=== PATIENT | female | born 1945 | race Caucasian/White ===

== ENCOUNTER 2025-06-18 11:45 | Emergency (ER) | payer MEDICARE, BC, SELFPAY ==
[2025-06-18 11:47] VITALS: BP 195/88
--- NOTE | 2025-06-18 12:54 | ED.GENMED ---
History of Present Illness
General
Chief Complaint: Skin Problem
Source: patient
Exam Limitations: none
Time Seen by Provider: 06/18/25 12:37
History of Present Illness
History of Present Illness:
See MDM
Past History
Past History
ED Past Medical History: Other (TTP)
ED Past Surgical History: None
Social History
Tobacco: Non-smoker
Alcohol: None
Phy Exam
Physical Exam
Physical Exam:
See MDM
Course
Orders/Labs/Results
Orders:
Orders
06/18/25 12:55
Gabapentin [Neurontin] 100 mg PO NOW STA
06/18/25 13:29
FRANCO, IgG Reflex to HEp-2 [S] Urgent
Antiphospholipid Antibody [Phospholipid Antibody Panel] Urgent
CRP [C-Reactive Protein] Urgent
Complete Blood Count/With Diff Urgent
Comprehensive Metabolic Panel Urgent
ESR [Erythrocyte Sed Rate] Urgent
LDH Urgent
RPR [Syphilis/T. pallidum Ab Reflex] Urgent
Abnormal Lab Results
06/18/25
13:29
Monocytes % 9.8 H %
(1.7-9.3)
ESR 75 H mm/hour
(0-20)
BUN 18 H mg/dl
(7-17)
Glucose 104 H mg/dl
(70-99)
06/18/25 13:29
06/18/25 13:29
Vital Signs
Initial and Last Documented VS:
Initial Vital Signs
Temp Pulse Resp BP Pulse Ox
98.5 F 85 18 195/88 97
06/18/25 11:47 06/18/25 11:47 06/18/25 11:47 06/18/25 11:47 06/18/25 11:47
Last Documented Vital Signs
Temp Pulse Resp BP Pulse Ox
98.5 F 85 18 195/88 97
06/18/25 11:47 06/18/25 11:47 06/18/25 11:47 06/18/25 11:47 06/18/25 12:55
MDM/Problems Addressed
Differential Diagnosis Includes:
Note:
CHIEF COMPLAINT(S)
Pain in one hand.
HISTORY OF PRESENT ILLNESS
The patient is an 80-year-old female presenting with pain in her left hand. She reports that the pain started two weeks ago. The patient described the sensation as very painful, noting that even warm touch exacerbates the pain, stating, 'I cant even
take a warm shower.' The pain was severe enough for her primary care physician (PCP) to suggest a dermatological evaluation. Following her dermatologists consultation, she was advised to seek emergency attention due to concerns about possible blood
clots. However, the business support manager did not provide clear information regarding the visits urgency, per pt. The patient denies taking any anticoagulants and mentions no recent trauma or new contact with substances using her hands. She reports no other
staton or symptoms on her body. The patient finds that cool temperatures provide some relief. She denies a history of autoimmune disorders, recent infections such as COVID-19, or unusual dietary intake like seafood. Her review of systems did not
reveal any respiratory issues or chest pain. The patient expresses skepticism about the presence of an emergency, adhering to her providers recommendations as a precaution.
PHYSICAL EXAM
General: Alert, no acute distress.
Skin: Warm, dry.
Head: Normocephalic, atraumatic
Neck: Appears supple, trachea midline.
Eyes, Ears, Nose, Mouth, and Throat: Moist mucous membranes
Cardiovascular: No signs of cyanosis
Respiratory: Respirations are non-labored.
Abdomen: Non-distended
Musculoskeletal: No deformities. Left radial pulse +2
Neurological: Patient tenderness to palpation of left fingertips but cap refill less than 2 seconds. Sensation grossly intact
Psychiatric: Cooperative, appropriate mood and affect.
PLAN
The patient may be started on a low dose of gabapentin (100 mg twice daily) for nerve pain, pending further consultation and decisions with her primary care physician. Nonsteroidal anti-inflammatory drugs (NSAIDs) like ibuprofen will not be started
immediately to avoid any potential impact on blood work that may be required later. The patient was advised on the treatment plan and reassured that the condition does not appear to be limb-threatening.
DIFFERENTIAL DIAGNOSIS
The Differential Diagnosis includes, in no particular order and is not limited to:
- Raynauds phenomenon
- Small vessel vasculitis
- Peripheral neuropathy
- Carpal tunnel syndrome
- Complex regional pain syndrome
- Blood clot in small vessels
- Allergic or irritant contact dermatitis
- Trauma-related pain
- Autoimmune disorder
- Neuropathic pain
MEDICATION RECONCILIATION
Gabapentin 100 mg prescribed to be taken twice daily as an initial regimen, with potential follow-up dosing adjustments based on response and consultation with her primary care physician.
MEDICAL DECISION MAKING
- Complexity of Data Reviewed: Chronic conditions affecting care include none explicitly mentioned; differential diagnosis includes small vessel vasculitis, Raynauds phenomenon, peripheral neuropathy, and others as listed above.
- Data:
Category 1
No external records were reviewed or test results immediately available.
Category 2
No direct interpretation of tests or imaging performed.
Category 3
No consultations with other physicians or specialists mentioned beyond dermatological input and planned primary care follow-up.
-Risk:
Consideration of Admission/Observation: Escalation of care including admission/observation was considered given the complexity and risk of the patients presenting complaint, exam findings, and/or their underlying comorbidities. However, ultimately,
I feel the patient is safe for outpatient management with close follow-up. Reasoning: Work-up reassuring, does not reveal any acute life/organ-threatening processes, patients symptoms well controlled upon reevaluation, reexamination is reassuring,
vitals are stable, patient agreeable with discharge, reliable for follow-up.
DIAGNOSIS
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
Peripheral neuropathy - ICD-10 code G62.9
Carpal tunnel syndrome - ICD-10 code G56.00
SUMMARY OF ENCOUNTER
The patient is an 80-year-old female who presented to the emergency department with left hand pain that began two weeks ago. The pain is described as severe and worsens with warm touch. Her business support manager recommended this visit due to concerns about
blood clots, though no immediate life-threatening conditions were identified. A trial of gabapentin for nerve pain was initiated after considering her negative history for conditions such as autoimmune disorders or recent infections. Mild elevation
in ESR was noted, suggesting inflammation, but the rest of the blood work remains pending.
DISPOSITION
Discharge.
ASSESSMENT
The patient presents with symptoms consistent with nerve pain, potentially linked to peripheral neuropathy or small vessel vasculitis. Further follow-up with her primary care physician is needed to evaluate blood work and refine the diagnosis.
PLAN
The patient was started on a low dose of gabapentin, 100 mg twice daily, as an initial regimen for nerve pain. Follow-up with the primary care physician will involve a reassessment of her condition and review of complete blood work results.
PATIENT EDUCATION AND COUNSELING
The patient was advised about the potential causes of her hand pain and the purpose of gabapentin in managing nerve-related pain. Return precautions were clearly discussed, emphasizing the importance of follow-up with her primary care physician for
ongoing management.
MEDICATION RECONCILIATION
Gabapentin 100 mg prescribed to be taken twice daily.
MEDICAL DECISION MAKING
- Number and Complexity of Problems Addressed:
Chronic conditions affecting care include none explicitly mentioned.
- Data:
Category 1: No specific labs were ordered today; however, results discussed indicated mild elevation in ESR with further results pending.
Category 3: Discussion involved the dermatologists input who suggested emergency evaluation due to suspected blood clot risks.
- Risk:
Prescription medication was prescribed, and follow-up with the primary care physician was advised to ensure comprehensive care. Consideration of Admission/Observation: Escalation of care including admission/observation was considered given the
complexity and risk of the patients presenting complaint. However, ultimately, I feel the patient is safe for outpatient management with close follow-up. Reasoning: Symptoms well controlled and stable for outpatient follow-up.
DIAGNOSIS
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
- Peripheral neuropathy - ICD-10 code G62.9
- Carpal tunnel syndrome - ICD-10 code G56.00
*Pulse Oximetry
SaO2: 97
Oxygen Mode of Delivery: Room air
Patient hypoxic: no
*Critical Care Note
Total Time (30-74mins, 75-104mins- exclusive of procedures): Not Applicable
ED Attending Note
-
Portions of this chart may have been created with voice recognition software.� Occasional wrong word or��sound alike� substitutions may have occurred due to the inherent limitations of voice recognition software.
Discharge Plan
Departure
Patient Disposition: Home (Routine Discharge)
Date of Disposition: 06/18/25
Time of Disposition: 15:18
Patient with high blood pressure during this ER visit?: Yes
Discharge Problem:
Hand paresthesia
Instructions: BLOOD PRESSURE
Prescriptions:
New
gabapentin 100 mg capsule
100 mg PO BID Qty: 14 0RF
Activity Restrictions/Additional Instructions:
Please return for any worsening symptoms.
You may return at any time if you have further concerns.
Please follow up with your doctor at the first available appointment, preferably this week. Please have your doctor follow-up on the remainder of the blood work.
I am putting you on a very low dose of a nerve pain medicine called gabapentin. If it helps, please talk to your doctor about continuing it.
Thank you for choosing [facility].
Interventions
Interventions:
*Risk Screen - Suicide Last Done: 06/18/25 13:15
*General Assessment Last Done: 06/18/25 13:15
*Neglect/Abuse Screening Last Done: 06/18/25 13:15
*ED- Fall Risk Assessment Last Done: 06/18/25 13:15
*ED COVID-19 Vaccine History Last Done: 06/18/25 13:15
*ED Influenza Vaccine History Last Done: 06/18/25 13:15
ED-Skin Assessment Last Done: 06/18/25 13:15
Discharge Date and Time
Print Language: [id number]
[2025-06-18] MEDS: NEURONTIN 100 MG PO (13:14)
[2025-06-18 13:43] LABS: Hematocrit 38.5 % (37.0-47.0); Hemoglobin 12.7 g/dL (12.0-16.0); Mean Corp Hgb Conc. 33.0 g/dL (33.0-37.0); Mean Corpuscular Volume 87.3 fL (81.0-99.0); Nucleated Red Blood Cells % 0 %; Platelet Count 211 10^3/uL (130-400); Red Cell Dist. Width 13.5 % (11.5-14.5)
[2025-06-18 13:59] LABS: ALT (SGPT) 14 U/L (0-35); AST (SGOT) 27 U/L (14-36); Albumin 4.1 g/dl (3.5-5.0); Alkaline Phosphatase 97 U/L (38-126); Blood Urea Nitrogen 18 mg/dl (7-17); Calcium 9.7 mg/dl (8.4-10.2); Carbon Dioxide 28 mmol/L (22-30); Chloride 103 mmol/L (98-107); Glucose 104 mg/dl (70-99); LDH 169 U/L (120-246); Potassium 4.0 mmol/L (3.5-5.1); Sodium 136 mmol/L (135-145); Total Protein 8.0 g/dl (6.3-8.2); eGFR > 60.00
[2025-06-18 14:02] LABS: C-Reactive Protein < 5.00 mg/L (0.0-10.00)
[2025-06-18 15:39] VITALS: BP 162/85
[2025-06-20 02:21] LABS: Beta-2-Glycoprotein I Ab. IgA <10 SAU (<=20); Beta-2-Glycoprotein I Ab. IgG <10 SGU (<=20); Beta-2-Glycoprotein I Ab. IgM 43 SMU (<=20)
[2025-06-20 10:44] LABS: ANA, IgG Reflex to HEp-2 Detected (None Detected)
[2025-06-20 11:43] LABS: Syphilis/T. pallidum Ab Reflex Negative (Negative)
[2025-06-21 01:48] LABS: Phosphatidylserine Ab, IgA 0 APS (0-19); Phosphatidylserine Ab, IgG 0 GPS (0-15); Phosphatidylserine Ab, IgM 10 MPS (0-21)
== END 2025-06-18 15:40 | disposition home or self-care (01) ==
LOC: EMR 11:45
PROVIDERS: EMERGENCY PHYSICIAN Student in an Organized Health Care Education/Training Program; FAMILY PHYSICIAN Internal Medicine Hematology & Oncology
DX: G62.9 Polyneuropathy, unspecified (principal); R20.2 Paresthesia of skin; G56.00 Carpal tunnel syndrome, unspecified upper limb; Z79.899 Other long term (current) drug therapy
CPT/HCPCS: 99283; 80053; 83615; 85025; 85652; 86038; 86039; 86140; 86146; 86147; 86148; 86780